=== PATIENT | female | born 1940 | race Caucasian/White ===

== ENCOUNTER 2020-07-11 22:17 | Emergency (ER) | payer MEDICARE, OTHER ==
[~2020-07-11 22:17] MED LIST: 3IN1 COMMODE XX; COUMADIN5 MG PO; COUMADIN7.5 MG PO; LASIX20 MG PO; LASIX40 MG PO; LEXAPRO 10MG TA10 MG PO; NORCO 5-325 TA1 EACH PO; PROTONIX 40MG T40 MG PO; SEROQUEL 25MG T25 MG PO; TOPROL XL 25MG25 MG PO; VIBRAMYCIN100 MG PO
[2020-07-11 23:25] LABS: EOSINOPHIL 5.3 % (0-7); HCT 35.6 % (37.0-47.0); HGB 10.8 g/dl (12.5-16.0); LYMPHOCYTE 15.2 % (15-48); MCHC 30.3 g/dL (32.0-36.0); MCV 95.7 fL (78.0-100.0); MPV 11.5 fL (6.0-9.5); NEUTROPHIL 72.3 % (41-80); NRBC 0; PLT 216 K/uL (150-400); RBC 3.72 M/uL (4.20-5.40); RDW 15.9 % (11.5-14.0); WBC 8.1 K/uL (4.0-10.5)
[2020-07-11 23:36] LABS: INR 1.77 (0.9-1.2); PROTHROMBIN TIME 19.6 SECONDS (11.4-13.6); PTT 34.2 SECONDS (22.2-34.7)
[2020-07-11 23:44] LABS: ALBUMIN 3.2 g/dL (3.4-5.0); BILIRUBIN - TOTAL 0.4 mg/dL (0.2-1.0); BUN/CREAT RATIO (CALC) 14.2 RATIO; CREATININE 1.27 mg/dL (0.51-0.95); GLOBULIN (CALCULATION) 3.8 g/dL; POTASSIUM 4.2 mmol/L (3.5-5.1)
[2020-07-12] MEDS ORDERED: CYCLOBENZAPRINE5 MG PO (02:34)
== END 2020-07-12 02:50 | disposition home or self-care (01) ==
LOC: FER 22:17
PROVIDERS: Emergency Medicine
DX: M43.6 Torticollis (principal); R06.02 Shortness of breath; I50.9 Heart failure, unspecified; I48.91 Unspecified atrial fibrillation; Z88.0 Allergy status to penicillin; Z79.01 Long term (current) use of anticoagulants; Z79.899 Other long term (current) drug therapy
CPT/HCPCS: 36415; 70491; 71045; 71250; 80053; 83880; 84484; 85025; 85610; 85730; 93005; 94760; J3360; J7030; Q9967

== ENCOUNTER 2020-09-25 16:46 | Inpatient (IN) | payer MEDICARE, OTHER ==
[~2020-09-25] VITALS: Ht 152.4 cm; Wt 49.1 kg
[~2020-09-25 16:46] MED LIST changes: +CYCLOBENZAPRINE5 MG PO
[2020-09-25 19:42] LABS: BASOPHIL 0.9 % (0-2); EOSINOPHIL 5.5 % (0-7); HCT 37.7 % (37.0-47.0); HGB 11.9 g/dl (12.5-16.0); LYMPHOCYTE 17.2 % (15-48); MCH 29.5 pg (25.0-31.0); MCHC 31.6 g/dL (32.0-36.0); MCV 93.5 fL (78.0-100.0); MONOCYTE 6.8 % (0-12); NEUTROPHIL 69.3 % (41-80); NRBC 0; PLT 205 K/uL (150-400); RBC 4.03 M/uL (4.20-5.40); RDW 16.1 % (11.5-14.0); WBC 6.9 K/uL (4.0-10.5)
[2020-09-25 19:53] LABS: BILIRUBIN - TOTAL 0.5 mg/dL (0.2-1.0); BUN/CREAT RATIO (CALC) 14.1 RATIO; C-REACTIVE PROTEIN 0.8 mg/dL (<=0.90); CREATININE 1.42 mg/dL (0.51-0.95); POTASSIUM 4.2 mmol/L (3.5-5.1)
[2020-09-25 19:59] LABS: PRO-BNP 10892 pg/mL (<450)
[2020-09-25 20:12] LABS: INR 4.46 (0.9-1.2); PROTHROMBIN TIME 40.6 SECONDS (11.4-13.6); PTT 48.6 SECONDS (22.2-34.7)
[2020-09-25 20:42] LABS: BILIRUBIN NEGATIVE (NEGATIVE); BLOOD TRACE-INTACT Ery/uL (NEGATIVE); CLARITY CLEAR (CLEAR); COLOR YELLOW (YELLOW); GLUCOSE (U) NORMAL (NORMAL); LEUKOCYTES NEGATIVE Leu/uL (NEGATIVE); NITRITE NEGATIVE (NEGATIVE); PROTEIN NEGATIVE (NEGATIVE); UROBILINOGEN 0.2 mg/dL (0.2-1.0)
[2020-09-25 20:48] LABS: BACTERIA 1+; SQUAMOUS EPITHELIAL CELLS RARE
[2020-09-26 06:08] LABS: BASOPHIL 0.9 % (0-2); EOSINOPHIL 6.8 % (0-7); HCT 34.6 % (37.0-47.0); HGB 10.9 g/dl (12.5-16.0); LYMPHOCYTE 19.3 % (15-48); MCH 29.5 pg (25.0-31.0); MCHC 31.5 g/dL (32.0-36.0); MCV 93.8 fL (78.0-100.0); MONOCYTE 7.6 % (0-12); MPV 11.7 fL (6.0-9.5); NEUTROPHIL 65.1 % (41-80); NRBC 0; PLT 206 K/uL (150-400); RBC 3.69 M/uL (4.20-5.40); RDW 16.2 % (11.5-14.0); WBC 6.9 K/uL (4.0-10.5)
[2020-09-26 07:06] LABS: ALBUMIN 3.4 g/dL (3.4-5.0); BILIRUBIN - TOTAL 0.7 mg/dL (0.2-1.0); BUN/CREAT RATIO (CALC) 13.4 RATIO; CREATININE 1.42 mg/dL (0.51-0.95); POTASSIUM 3.5 mmol/L (3.5-5.1); TOTAL PROTEIN 6.4 g/dL (6.4-8.2)
--- NOTE | 2020-09-26 13:02 | NUR ---
MET WITH PT. REGARDING NEEDS. ADVISED HER THAT THERAPY IS RECOMMENDING HH OR OUTPT. PT. STATES THAT SHE DOES NOT WISH TO HAVE HH OR GO TO OUTPT. SHE STATES THAT HER DAUGHTER IS A NURSE AND RESIDES WITH HER AND HER SPOUSE. PT. SON AND GRANDCHILD ALSO RESIDE WITH PT. PT. STATES THAT SHE GOES TO A HEART CLINIC AT [facility] EVERY 6 WEEKS. TO CHECK HER WEIGHT AND FLUID. PT. STATES THAT SHE WOULD PREFER TO STAY WITH THE HEART CLINIC. PT. HAS HOME O2 WELL PORTABLE OXYGEN. SHE HAS A ROLLING WALKER, 07/22 AND ELEVATED TOLIET SEAT.
--- NOTE | 2020-09-26 14:37 | NUR ---
CALLED AND SPOKE TO THE [facility] TO SEND OVER MOST RECENT DISCHARGE SUMMARY AND CARDIOLOGY REPORTS
[2020-09-26 21:53] LABS: BILIRUBIN NEGATIVE (NEGATIVE); BLOOD 3+ Ery/uL (NEGATIVE); CLARITY HAZY (CLEAR); COLOR YELLOW (YELLOW); GLUCOSE (U) NORMAL (NORMAL); LEUKOCYTES 1+ Leu/uL (NEGATIVE); NITRITE NEGATIVE (NEGATIVE); PROTEIN 2+ mg/dL (NEGATIVE); SPECIFIC GRAVITY 1.015 (1.001-1.030); UROBILINOGEN 0.2 mg/dL (0.2-1.0)
[2020-09-26 21:56] LABS: BACTERIA TRACE; SQUAMOUS EPITHELIAL CELLS RARE; URINARY RBC 20-50; URINARY WBC RARE
[2020-09-27 06:19] LABS: BASOPHIL 1.1 % (0-2); EOSINOPHIL 8.1 % (0-7); HCT 39.4 % (37.0-47.0); HGB 12.4 g/dl (12.5-16.0); LYMPHOCYTE 22.7 % (15-48); MCH 29.6 pg (25.0-31.0); MCHC 31.5 g/dL (32.0-36.0); MONOCYTE 7.9 % (0-12); MPV 11.5 fL (6.0-9.5); NRBC 0; PLT 163 K/uL (150-400); RBC 4.19 M/uL (4.20-5.40); RDW 15.9 % (11.5-14.0); WBC 6.6 K/uL (4.0-10.5)
[2020-09-27 06:57] LABS: INR 2.3 (0.9-1.2); PROTHROMBIN TIME 24.1 SECONDS (11.4-13.6)
[2020-09-27 07:33] LABS: BUN/CREAT RATIO (CALC) 14.5 RATIO; CREATININE 1.45 mg/dL (0.51-0.95); POTASSIUM 3.5 mmol/L (3.5-5.1)
[2020-09-27] MEDS ORDERED: LASIX20 MG PO (09:03)
[2020-09-27] MEDS ORDERED: LASIX40 MG PO (11:55)
--- NOTE | 2020-09-27 16:42 | NUR ---
PATIENT VOIDED PER [facility]TER AT [id number]
== END 2020-09-27 15:38 | disposition home or self-care (01) | DRG 280 ==
LOC: FER 16:46 → FMS 09-26 00:20
PROVIDERS: Allergy & Immunology Allergy; Emergency Medicine Emergency Medical Services; Internal Medicine Cardiovascular Disease; Nurse Practitioner; ADMIT Internal Medicine
DX: I13.0 Hypertensive heart and chronic kidney disease with heart failure and stage 1 through stage 4 chronic kidney disease, or unspecified chronic kidney disease (principal); I21.A1 Myocardial infarction type 2; I50.33 Acute on chronic diastolic (congestive) heart failure; D68.61 Antiphospholipid syndrome; J96.11 Chronic respiratory failure with hypoxia; N18.9 Chronic kidney disease, unspecified; J43.9 Emphysema, unspecified; Z20.822 Contact with and (suspected) exposure to COVID-19; I73.00 Raynaud's syndrome without gangrene; Z96.652 Presence of left artificial knee joint; I48.0 Paroxysmal atrial fibrillation; I27.20 Pulmonary hypertension, unspecified; R53.81 Other malaise; I95.1 Orthostatic hypotension; Z99.81 Dependence on supplemental oxygen; Z90.49 Acquired absence of other specified parts of digestive tract; Z90.710 Acquired absence of both cervix and uterus; Z98.890 Other specified postprocedural states; Z79.899 Other long term (current) drug therapy; Z79.01 Long term (current) use of anticoagulants; Z88.0 Allergy status to penicillin
CPT/HCPCS: 36415; 36600; 71045; 71046; 80048; 80053; 81001; 82803; 83880; 84484; 85025; 85610; 85730; 86140; 87088; 93005; 94760; 97162; 97166; 97530-GP; 97535; J1940; U0002